=== PATIENT | male | born 1960 | race Caucasian/White ===

== ENCOUNTER 2018-06-20 13:51 | Outpatient (REF) | payer MEDICARE, MEDICAID, SELFPAY ==
[2018-06-20 19:07] LABS: HCT 51.9 % (40.0-50.0); Mean Corp. HGB Concentration 34.7 g/dL (32.0-36.0); Mean Corpuscular Hemoglobin 30.5 pg (27.0-33.0); Mean Platelet Volume 10.7 fL (8.0-11.0); Platelet Count 337 x1000/uL (130-400); RBC Distribution Width 15.5 % (11.8-14.1); White Blood Cell Count 11.19 k/cumm (4.4-10.8)
[2018-06-20 19:32] LABS: Anion Gap 10.4 mmol/L (3-11); BUN 27 mg/dL (7-18); CO2 27.6 mmol/L (21.0-32.0); CREATININE 1.04 mg/dL (0.70-1.30); Calcium 9.6 mg/dL (8.5-10.1); Chloride 101 mmol/L (98-107); Glucose 87 mg/dL (70-100); Sodium 139 mmol/L (136-145)
== END 2018-06-20 14:11 ==
LOC: NCHCN 13:51
PROVIDERS: PCP Internal Medicine; Visit Provider Physician Assistant Medical
DX: I10 Essential (primary) hypertension (principal)
CPT/HCPCS: 80048; 85027

== ENCOUNTER 2018-08-09 11:36 | Outpatient (REF) | payer MEDICARE, MEDICAID, SELFPAY ==
[2018-08-09 18:44] LABS: HGB 16.6 g/dL (13.5-17.5); Mean Corp. HGB Concentration 34.6 g/dL (32.0-36.0); Mean Corpuscular Volume 86.8 fL (80-95); Mean Platelet Volume 10.9 fL (8.0-11.0); Platelet Count 334 x1000/uL (130-400); RBC 5.53 m/cumm (4.50-6.00); RBC Distribution Width 15.7 % (11.8-14.1); White Blood Cell Count 10.27 k/cumm (4.4-10.8)
[2018-08-09 19:20] LABS: ALT 28 U/L (12-78); AST 17 U/L (15-37); Albumin 3.9 g/dL (3.4-5.0); Alkaline Phosphatase 78 U/L (46-116); Anion Gap 10.8 mmol/L (3-11); BUN 15 mg/dL (7-18); Bilirubin, Total 0.5 mg/dL (0.2-1.0); CO2 27.2 mmol/L (21.0-32.0); CREATININE 0.93 mg/dL (0.70-1.30); Chloride 101 mmol/L (98-107); Glucose 92 mg/dL (70-100); Potassium 3.8 mmol/L (3.5-5.1); Sodium 139 mmol/L (136-145); Total Protein 6.6 g/dL (6.4-8.2)
== END 2018-08-09 11:56 ==
LOC: NCHCN 11:36
PROVIDERS: PCP Internal Medicine; Visit Provider Physician Assistant Medical
DX: R69 Illness, unspecified (principal); Z01.818 Encounter for other preprocedural examination
CPT/HCPCS: 80053; 85027

== ENCOUNTER 2018-12-14 15:09 | Outpatient (REF) | payer MEDICARE, MEDICAID, SELFPAY ==
[2018-12-14 21:37] LABS: Anion Gap 10.2 mmol/L (3-11); BUN 19 mg/dL (7-18); CO2 26.8 mmol/L (21.0-32.0); CREATININE 0.65 mg/dL (0.70-1.30); Calcium 9.5 mg/dL (8.5-10.1); Chloride 104 mmol/L (98-107); Glucose 89 mg/dL (70-100); Potassium 3.7 mmol/L (3.5-5.1); Sodium 141 mmol/L (136-145)
== END 2018-12-14 15:29 ==
LOC: NCHCN 15:09
PROVIDERS: PCP Internal Medicine; Visit Provider Nurse Practitioner Family
DX: N13.30 Unspecified hydronephrosis (principal)
CPT/HCPCS: 80048

== ENCOUNTER 2020-02-29 18:31 | Outpatient (REF) | payer MEDICARE, MEDICAID, SELFPAY ==
[2020-02-29 19:53] LABS: Iron 61 ug/dL (65-175)
[2020-02-29 20:51] LABS: ALT 19 U/L (16-63); AST 13 U/L (15-37); Albumin 3.8 g/dL (3.4-5.0); Alkaline Phosphatase 84 U/L (46-116); Anion Gap 10.9 mmol/L (3-11); BUN 12 mg/dL (7-18); Bilirubin, Total 0.7 mg/dL (0.2-1.0); CO2 26.1 mmol/L (21.0-32.0); CREATININE 0.69 mg/dL (0.70-1.30); Chloride 103 mmol/L (98-107); Ferritin 226 ng/mL (26-388); Folate 5.4 ng/mL (8.6-20.0); Glucose 84 mg/dL (74-106); Magnesium 1.5 mg/dL (1.8-2.4); Potassium 3.8 mmol/L (3.5-5.1); Sodium 140 mmol/L (136-145); Total Protein 6.6 g/dL (6.4-8.2); Vitamin B12 466 pg/mL (193-986)
== END 2020-02-29 18:51 ==
LOC: NCHCN 18:31
PROVIDERS: PCP Internal Medicine; Visit Provider Nurse Practitioner Family
DX: I10 Essential (primary) hypertension (principal); E83.19 Other disorders of iron metabolism; F10.21 Alcohol dependence, in remission
CPT/HCPCS: 80053; 82607; 82728; 82746; 83540; 83735

== ENCOUNTER 2020-04-04 12:27 | Outpatient (REF) | payer MEDICARE, MEDICAID, SELFPAY ==
[2020-04-04 19:23] LABS: HCT 52.1 % (40.0-50.0); HGB 17.6 g/dL (13.5-17.5); MCH 30.6 pg (27.0-33.0); MCHC 33.8 % (32.0-36.0); MCV 90.6 fL (80-95); MPV 9.8 fL (8.0-11.0); Platelet Count 388 10^3/uL (130-400); RBC 5.75 10^6/uL (4.36-5.78); RDW 16.9 % (11.8-14.1); RDW-SD 54.7 fL; WBC 7.96 10^3/uL (4.4-10.8)
== END 2020-04-04 12:47 ==
LOC: NCHCN 12:27
PROVIDERS: PCP Internal Medicine; Visit Provider Nurse Practitioner Family
DX: L03.115 Cellulitis of right lower limb (principal)
CPT/HCPCS: 85027

== ENCOUNTER 2021-02-25 14:42 | Outpatient (REF) | payer MEDICARE, MEDICAID, SELFPAY ==
[2021-02-25 20:47] LABS: Anion Gap 8.8 mmol/L (3-11); BUN 9 mg/dL (7-18); CO2 27.2 mmol/L (21.0-32.0); Calcium 9.2 mg/dL (8.5-10.1); Chloride 105 mmol/L (98-107); Glucose 80 mg/dL (74-106); Potassium 3.6 mmol/L (3.5-5.1); Sodium 141 mmol/L (136-145)
== END 2021-02-25 14:43 | disposition home or self-care (01) ==
LOC: NCHCN 14:42
PROVIDERS: PCP Internal Medicine; Visit Provider Physician Assistant
DX: I10 Essential (primary) hypertension (principal)
CPT/HCPCS: 80048

== ENCOUNTER 2022-03-26 15:29 | Outpatient (REF) | payer MEDICARE, MEDICAID, SELFPAY ==
[2022-03-26 19:08] LABS: ALT 14 U/L (16-63); AST 18 U/L (15-37); Albumin 3.6 g/dL (3.4-5.0); Alkaline Phosphatase 103 U/L (46-116); Anion Gap 7.1 mmol/L (3-11); BUN 11 mg/dL (7-18); Bilirubin, Total 0.4 mg/dL (0.2-1.0); CO2 26.9 mmol/L (21.0-32.0); CREATININE 0.9 mg/dL (0.70-1.30); Calcium 8.8 mg/dL (8.5-10.1); Chloride 106 mmol/L (98-107); Estimated GFR 97.17 (mL/min/1.73m2); Glucose 88 mg/dL (74-106); Potassium 3.8 mmol/L (3.5-5.1); Sodium 140 mmol/L (136-145); Total Protein 6.8 g/dL (6.4-8.2)
== END 2022-03-26 15:30 | disposition home or self-care (01) ==
LOC: NCHCN 15:29
PROVIDERS: PCP Internal Medicine; Visit Provider Physician Assistant
DX: I10 Essential (primary) hypertension (principal)
CPT/HCPCS: 80053

== ENCOUNTER 2023-03-24 21:29 | Outpatient (REF) | payer MEDICARE, MEDICAID, SELFPAY ==
[2023-03-24 20:34] LABS: ALT 22 U/L (16-63); AST 22 U/L (15-37); Alkaline Phosphatase 93 U/L (46-116); Anion Gap 10.5 mmol/L (3-11); BUN 6 mg/dL (7-18); Bilirubin, Total 0.7 mg/dL (0.2-1.0); CO2 26.5 mmol/L (21.0-32.0); CREATININE 0.9 mg/dL (0.70-1.30); Calcium 9.3 mg/dL (8.5-10.1); Chloride 103 mmol/L (98-107); Estimated GFR 96.57 (mL/min/1.73m2); Glucose 87 mg/dL (74-106); LDL CHOLESTEROL 88 mg/dL (<100); Sodium 140 mmol/L (136-145); Total Protein 7.1 g/dL (6.4-8.2)
== END 2023-03-24 21:30 | disposition home or self-care (01) ==
LOC: NCHCN 21:29
PROVIDERS: PCP Internal Medicine; Visit Provider Physician Assistant
DX: I10 Essential (primary) hypertension (principal)
CPT/HCPCS: 80053; 83721

== ENCOUNTER 2023-09-29 13:15 | Outpatient (REF) | payer MEDICARE, MEDICAID, SELFPAY ==
[2023-09-29 19:40] LABS: Anion Gap 9.5 mmol/L (3-11); BUN 15 mg/dL (7-18); CO2 28.5 mmol/L (21.0-32.0); CREATININE 1.1 mg/dL (0.70-1.30); Calcium 9.3 mg/dL (8.5-10.1); Chloride 106 mmol/L (98-107); Estimated GFR 75.43 (mL/min/1.73m2); Glucose 106 mg/dL (74-106); Potassium 4.1 mmol/L (3.5-5.1); Sodium 144 mmol/L (136-145)
== END 2023-09-29 13:16 | disposition home or self-care (01) ==
LOC: NCHCN 13:15
PROVIDERS: PCP Internal Medicine; Visit Provider Physician Assistant
DX: D43.4 Neoplasm of uncertain behavior of spinal cord (principal)
CPT/HCPCS: 80048

== ENCOUNTER 2024-01-28 16:02 | Outpatient (REF) | payer MEDICARE, MEDICAID, SELFPAY ==
[2024-01-28 19:23] LABS: CREATININE 0.9 mg/dL (0.70-1.30); Estimated GFR 95.97 (mL/min/1.73m2)
== END 2024-01-28 16:03 | disposition home or self-care (01) ==
LOC: NCHCN 16:02
PROVIDERS: PCP Internal Medicine; Visit Provider Physician Assistant
DX: I10 Essential (primary) hypertension (principal)
CPT/HCPCS: 82565

== ENCOUNTER 2024-07-14 11:25 | Outpatient (REF) | payer MEDICARE, MEDICAID, SELFPAY ==
[2024-07-14 19:15] LABS: Abs Immature Grans 0.05 10^3/uL (0.0-0.06); Absolute Basophil Count 0.06 10^3/uL (0.0-0.2); Absolute Eosinophil Count 0.51 10^3/uL (0.0-0.7); Absolute Lymphocyte Count 3.23 10^3/uL (1.2-3.4); Absolute Monocyte Count 0.66 10^3/uL (0.1-0.8); Absolute Neutrophil Count 5.62 10^3/uL (1.2-6.7); Basophils % 0.6 %; HCT 53.7 % (40.0-50.0); HGB 18.1 g/dL (13.5-17.5); Immature Grans % 0.5 %; Lymphocytes % 31.9 %; MCH 29.8 pg (27.0-33.0); MCHC 33.7 % (32.0-36.0); MCV 89 fL (80-95); MPV 10.3 fL (8.0-11.0); Monocytes % 6.5 %; Neutrophils % 55.5 %; Platelet Count 323 10^3/uL (130-400); RBC 6.07 10^6/uL (4.36-5.78); RDW 16.6 % (11.8-14.1); RDW-SD 52.2 fL; WBC 10.13 10^3/uL (4.4-10.8)
[2024-07-14 19:28] LABS: ALT 15 U/L (16-63); AST 15 U/L (15-37); Alkaline Phosphatase 89 U/L (46-116); Anion Gap 5.1 mmol/L (3-11); BUN 13 mg/dL (7-18); CO2 28.9 mmol/L (21.0-32.0); CREATININE 0.9 mg/dL (0.70-1.30); Calcium 9.1 mg/dL (8.5-10.1); Chloride 107 mmol/L (98-107); Estimated GFR 95.97 (mL/min/1.73m2); Glucose 82 mg/dL (74-106); Potassium 3.5 mmol/L (3.5-5.1); Sodium 141 mmol/L (136-145); Total Protein 6.8 g/dL (6.4-8.2)
[2024-07-14 19:34] LABS: Bilirubin Negative (Negative); Blood Trace-intact (Negative); Clarity Clear (Clear); Glucose Negative (Negative); Ketones Negative (Negative); Leukocyte Esterase Negative (Negative); Nitrite Negative (Negative); Specific Gravity 1.015 (1.005-1.025); Urobilinogen 0.2 mg/dL (Up to 0.2)
[2024-07-14 19:38] LABS: *AMPHETAMINES SCREEN URINE Negative (Negative); *BARBITURATES SCREEN URINE Negative (Negative); *BENZODIAZEPINES SCREEN URINE Negative (Negative); Bacteria Rare HPF (Negative); C & S Indicated? No; Cannabinoids THC Positive (Negative); Casts Negative LPF (Negative); Cocaine Screen,Urine Negative (Negative); Crystals Negative HPF (Negative); Epithelial Cells Negative HPF (Negative); METHADONE URINE SCREEN Negative (Negative); Mucus Negative (Negative); OPIATES URINE SCREEN Negative (Negative); RBC 0-2 HPF (0-2); WBC Negative HPF (0-5)
[2024-07-14 19:40] LABS: Tricyclic Antidepressants Negative (Negative)
[2024-07-14 19:47] LABS: RBC Morphology Normal
[2024-07-21 06:28] LABS: O-desmethyltramadol 28496 ng/mL (Cutoff:25); Tramadol 23874 ng/mL (Cutoff:25)
== END 2024-07-14 11:26 | disposition home or self-care (01) ==
LOC: NCHCN 11:25
PROVIDERS: PCP Internal Medicine; Visit Provider Physician Assistant
DX: N13.2 Hydronephrosis with renal and ureteral calculous obstruction (principal)
CPT/HCPCS: 80053; 80307; 80373; 81003; 81015; 85025

== ENCOUNTER → 2024-07-24 09:48 | Outpatient (BNVA) | payer MEDICARE, MEDICAID, SELFPAY | PROVIDERS: PCP Internal Medicine; Referring Provider Internal Medicine; Visit Provider Urology | DX: N13.5 Crossing vessel and stricture of ureter without hydronephrosis (principal) | CPT/HCPCS: 99205 ==

== ENCOUNTER 2024-12-07 21:02 | Outpatient (REF) | payer MEDICARE, MEDICAID, SELFPAY ==
[2024-12-07 21:22] LABS: Abs Immature Grans 0.04 10^3/uL (0.0-0.06); HCT 50.4 % (40.0-50.0); HGB 16.3 g/dL (13.5-17.5); Immature Grans % 0.4 %; MCH 29.2 pg (27.0-33.0); MCHC 32.3 % (32.0-36.0); MCV 90 fL (80-95); MPV 11.0 fL (8.0-11.0); Platelet Count 279 10^3/uL (130-400); RBC 5.59 10^6/uL (4.36-5.78); RDW 15.5 % (11.8-14.1); RDW-SD 51.5 fL; WBC 10.87 10^3/uL (4.4-10.8)
[2024-12-07 21:42] LABS: ALT 19 U/L (16-63); AST 22 U/L (15-37); Albumin 3.6 g/dL (3.4-5.0); Alkaline Phosphatase 89 U/L (46-116); Anion Gap 4.7 mmol/L (3-11); BUN 11 mg/dL (7-18); Bilirubin, Total 0.5 mg/dL (0.2-1.0); CO2 30.3 mmol/L (21.0-32.0); Calcium 8.8 mg/dL (8.5-10.1); Calculated LDL 73 mg/dL (<100); Chloride 104 mmol/L (98-107); Cholesterol 133 mg/dL (<200); Estimated GFR 98.83 (mL/min/1.73m2); Glucose 95 mg/dL (74-106); HDL Cholesterol 47 mg/dL (>or=40); Potassium 3.8 mmol/L (3.5-5.1); Sodium 139 mmol/L (136-145); TSH (W/Ref FT4) 1.53 uIU/mL (0.36-3.74); Total Protein 6.3 g/dL (6.4-8.2); Triglyceride 65 mg/dL (<150)
== END 2024-12-07 21:03 | disposition home or self-care (01) ==
LOC: NCHCN 21:02
PROVIDERS: PCP Internal Medicine; Visit Provider Physician Assistant
DX: I10 Essential (primary) hypertension (principal); N13.30 Unspecified hydronephrosis
CPT/HCPCS: 80053; 80061; 80373; 84443; 85025

== ENCOUNTER 2025-05-11 15:05 | Outpatient (REF) | payer MEDICARE, MEDICAID, SELFPAY | END 2025-05-11 15:06 | disposition home or self-care (01) | LOC: NCHCN 15:05 | PROVIDERS: PCP Internal Medicine; Visit Provider Physician Assistant | DX: G80.1 Spastic diplegic cerebral palsy (principal) | CPT/HCPCS: 80373 ==